=== PATIENT | male | born 1980 | race Two or more races ===

== ENCOUNTER 2017-08-10 04:44 | Emergency (ER) | payer MEDICAID ==
[~2017-08-10] VITALS: Ht 180.3 cm; Wt 71.4 kg
[2017-08-10] MEDS ORDERED: L.E.T SOLUTION TP ONE ×2 (05:14→05:30)
[2017-08-10] MEDS ORDERED: DIPH,PERTUSS(ACELL),TET VAC/PF 0.5 ML IM-VACC ONE ×2 (05:28→05:30)
[2017-08-10] MEDS ORDERED: SODIUM CHLORIDE FLUSH 10ML SYR IVF ONE (06:00)
[2017-08-10] MEDS ORDERED: SODIUM CHLORIDE 0.9% 1,000ML IVBOLUS ONE (06:00)
[2017-08-10] MEDS ORDERED: BACITRACIN ZINC OINT 500U/GM, 0.9 GM ONE (06:09)
[2017-08-10 06:27] LABS: HEMATOCRIT 42.2 % (39.2-51.8); HEMOGLOBIN 13.8 g/dL (13.7-18.0); WHITE BLOOD COUNT 8.5 x10^3/uL (3.4-10)
[2017-08-10 06:35] LABS: BLOOD UREA NITROGEN 10 mg/dL (7-18)
[2017-08-10 07:01] VITALS: BP 119/84
== END 2017-08-10 07:15 | disposition left against medical advice (07) ==
LOC: ED 06:51
DX: S01.01XA Laceration without foreign body of scalp, initial encounter (principal); F17.210 Nicotine dependence, cigarettes, uncomplicated; W19.XXXA Unspecified fall, initial encounter; Y93.89 Activity, other specified; Y92.89 Other specified places as the place of occurrence of the external cause; Y99.8 Other external cause status
CPT/HCPCS: 12001; 36415; 70450; 80048; 82040; 85025; 85610; 85730; 90471; 90715; 96360; 99285; J7030